=== PATIENT | female | born 1970 | race Caucasian/White ===

== ENCOUNTER → 2024-02-11 | Day surgery (SDC) | payer OTHER ==
[2024-02-10 10:46] LABS: BASOPHILS # (AUTO) 0.1 (0.0-0.1); EOSINOPHILS # (AUTO) 0.1 (0.0-0.4); EOSINOPHILS % 1.9 % (0.0-6.0); HEMATOCRIT 45.3 % (34.2-44.1); HEMOGLOBIN 14.6 g/dL (12.0-16.0); LYMPHOCYTES # (AUTO) 1.8 (1.0-3.2); LYMPHOCYTES % 36.6 % (18.0-39.1); MEAN CORPUSCULAR HEMOGLOBIN 30.9 pg (28-32); MEAN CORPUSCULAR HGB CONC 32.2 g/dL (31-35); MEAN CORPUSCULAR VOLUME 95.8 fL (81-99); MONOCYTES # (AUTO) 0.3 (0.2-0.8); MONOCYTES % 5.9 % (4.4-11.3); NEUTROPHILS # (AUTO) 2.6 (2.1-6.9); NEUTROPHILS % 54.2 % (38.7-80.0); PLATELET COUNT 261 x10e3/uL (140-360); RED BLOOD COUNT 4.73 x10e6/uL (3.6-5.1); RED CELL DISTRIBUTION WIDTH 12.8 % (11.7-14.4); WHITE BLOOD COUNT 4.78 x10e3/uL (4.8-10.8)
[2024-02-10 11:06] LABS: ANION GAP 11.1 mmol/L (8-16); CALCIUM 8.6 mg/dL (8.4-10.2); CREATININE, SERUM 0.85 mg/dL (0.57-1.11); POTASSIUM 4.1 mmol/L (3.5-5.1); URIC ACID 4.9 mg/dL (2.6-8.0)
[~2024-02-11] MED LIST: AJOVY AUTO225 MG/1.5; BACLOFEN10 MG PO; BUSPIRONE HCL5 MG PO; CRESTOR40 MG PO; FENTANYL CITRATE/PF 100MCG/2 ML INJ ONE; FLUTICASONE PRO16 GM; HYDROCODON-ACE1 EA11 PO; IOPAMIDOL 610MG/1ML 300 MG/ML VIAL IV ONE; LEVOCETIRIZINE D5 MG; LEXAPRO20 MG PO; LIDOCAINE HCL 2% LOCAL INJ 5 ML SDV VIAL INJ ONE; LOSARTAN POTASS25 MG PO; MAGNESIUM OXID400 MG PO; MIDAZOLAM HCL 2 MG/2 ML VIAL ONE; OMEPRAZOLE40 MG PO; ONDANSETRON HCL INJ 2MG/ML 2ML 2 MG/ML VIAL ONE; POTASSIUM CITR10 MEQ PO; PROPOFOL IV EMULSION 10 MG/ML 20 ML VIAL ONE; TOPAMAX100 MG PO; VERAPAMIL ER120 MG PO; VITAMIN D3
[2024-02-11 10:15] LABS: CALCIUM 8.8 mg/dL (8.7-10.2)
[2024-02-11] MEDS: CEFTRIAXONE 1 GM VIAL ONE (11:45)
[2024-02-11] MEDS: LACTATED RINGER'S 1,000 ML ONE (11:46)
[2024-02-11] MEDS: PHENAZOPYRIDINE HCL 100 MG TAB ONE (15:20)
[2024-02-11 16:00] VITALS: BP 140/72; PULSE 64; RESP 16; O2SAT 99
== END | disposition home or self-care (01) ==
LOC: OR 06:02
PROVIDERS: ATTEND Urology
DX: N20.0 Calculus of kidney (principal); N39.0 Urinary tract infection, site not specified; N32.89 Other specified disorders of bladder; I12.9 Hypertensive chronic kidney disease with stage 1 through stage 4 chronic kidney disease, or unspecified chronic kidney disease; N18.2 Chronic kidney disease, stage 2 (mild); N81.10 Cystocele, unspecified; N81.6 Rectocele; N36.41 Hypermobility of urethra; N95.2 Postmenopausal atrophic vaginitis; N39.46 Mixed incontinence; N32.81 Overactive bladder; N81.89 Other female genital prolapse; N28.1 Cyst of kidney, acquired; E66.9 Obesity, unspecified; J45.909 Unspecified asthma, uncomplicated; E78.5 Hyperlipidemia, unspecified; K58.9 Irritable bowel syndrome, unspecified; M54.2 Cervicalgia; F41.9 Anxiety disorder, unspecified; Z91.041 Radiographic dye allergy status; Z91.040 Latex allergy status; Z91.013 Allergy to seafood; Z01.810 Encounter for preprocedural cardiovascular examination; Z01.812 Encounter for preprocedural laboratory examination; Z01.818 Encounter for other preprocedural examination; Z79.899 Other long term (current) drug therapy; Z68.33 Body mass index [BMI] 33.0-33.9, adult
CPT/HCPCS: 36415; 50590; 74018; 80048; 83970; 84550; 85025; 87086; 93005; C1758; J0696; J2001; J2250; J2405; J2704; J3010; J7121; Q9967

== ENCOUNTER 2024-02-12 09:54 | Emergency (ER) | payer OTHER ==
[~2024-02-12] VITALS: Ht 167.6 cm; Wt 94.8 kg
[~2024-02-12 09:54] MED LIST changes: -FENTANYL CITRATE/PF 100MCG/2 ML INJ ONE; -HYDROCODON-ACE1 EA11 PO; -IOPAMIDOL 610MG/1ML 300 MG/ML VIAL IV ONE; -LIDOCAINE HCL 2% LOCAL INJ 5 ML SDV VIAL INJ ONE; -MIDAZOLAM HCL 2 MG/2 ML VIAL ONE; -ONDANSETRON HCL INJ 2MG/ML 2ML 2 MG/ML VIAL ONE; -PROPOFOL IV EMULSION 10 MG/ML 20 ML VIAL ONE
[2024-02-12 10:40] VITALS: PULSE 78; RESP 15; TEMP 98.6; O2SAT 98
[2024-02-12 11:37] LABS: BILIRUBIN,URINE SMALL (NEGATIVE); CLARITY,URINE CLEAR (CLEAR); COLOR,URINE ORANGE (YELLOW); GLUCOSE, URINE 1+ (NEGATIVE); KETONES,URINE NEGATIVE (NEGATIVE); LEUKOCYTE ESTERASE ,URINE NEGATIVE (NEGATIVE); NITRITE,URINE POSITIVE (NEGATIVE); PH,URINE 5.5 (5 - 7); PROTEIN,URINE DIPSTICK 2+ (NEGATIVE); URINE UROBILINOGEN 1 mg/dL (0.2 - 1)
[2024-02-12 11:48] LABS: BACTERIA,URINE FEW /HPF; EPITHELIAL CELLS,URINE MODERATE /LPF; MUCUS,URINE FEW (RARE); RBC,URINE 21-50 /HPF (0-5)
[2024-02-12] MEDS ORDERED: HYDROCODON-ACE1 EA11 PO (12:37)
== END 2024-02-12 13:11 | disposition home or self-care (01) ==
LOC: ER 10:00
DX: G89.18 Other acute postprocedural pain (principal); N99.840 Postprocedural hematoma of a genitourinary system organ or structure following a genitourinary system procedure
CPT/HCPCS: 74176; 81001; 87086; 99284

== ENCOUNTER 2024-05-15 10:16 | Inpatient (IN) | payer OTHER ==
[2024-05-10 15:26] LABS: BASOPHILS # (AUTO) 0.1 (0.0-0.1); BASOPHILS % 0.8 % (0.0-1.0); EOSINOPHILS # (AUTO) 0.1 (0.0-0.4); HEMATOCRIT 43.7 % (34.2-44.1); LYMPHOCYTES # (AUTO) 2.9 (1.0-3.2); LYMPHOCYTES % 43.5 % (18.0-39.1); MEAN CORPUSCULAR HEMOGLOBIN 30.8 pg (28-32); MEAN CORPUSCULAR VOLUME 96.3 fL (81-99); MONOCYTES # (AUTO) 0.4 (0.2-0.8); MONOCYTES % 6.6 % (4.4-11.3); NEUTROPHILS # (AUTO) 3.1 (2.1-6.9); NEUTROPHILS % 47.1 % (38.7-80.0); PLATELET COUNT 257 x10e3/uL (140-360); RED BLOOD COUNT 4.54 x10e6/uL (3.6-5.1); RED CELL DISTRIBUTION WIDTH 13.5 % (11.7-14.4); WHITE BLOOD COUNT 6.66 x10e3/uL (4.8-10.8)
[2024-05-10 15:45] LABS: ANION GAP 11.5 mmol/L (8-16); CALCIUM 9.5 mg/dL (8.4-10.2); CREATININE, SERUM 1.16 mg/dL (0.57-1.11); POTASSIUM 3.5 mmol/L (3.5-5.1)
[~2024-05-15] VITALS: Ht 167.6 cm; Wt 92.1 kg
[2024-05-15] VITALS (7 sets, daily range): BP systolic 131–144; BP diastolic 62–74; PULSE 85–95; RESP 16–20; TEMP 97–97.8; O2SAT 96–99
[~2024-05-15 10:16] MED LIST changes: +Ampicillin/Sulbactam 3 GM Vial ONE; +BUTALB-ACETAMI1 EACH PO; +HYDROCODON-ACE1 EA11 PO; +SODIUM CHLORIDE 0.9% INJ 100 ML BAG ONE; +TOPIRAMATE ER100 M1 PO
[2024-05-15] MEDS: LACTATED RINGER'S 1,000 ML ONE (12:09)
[2024-05-15] MEDS: GENTAMICIN 80MG/NS 100 ML 200 ML IV ONE (12:10)
[2024-05-15] MEDS: CLINDAMYCIN 600MG / 50ML 50 ML IV ONE (12:10)
[2024-05-15] MEDS ORDERED: PROPOFOL IV EMULSION 10 MG/ML 20 ML VIAL ONE (12:22)
[2024-05-15] MEDS ORDERED: LIDOCAINE HCL 2% LOCAL INJ 5 ML SDV VIAL INJ ONE (12:22)
[2024-05-15] MEDS ORDERED: ROCURONIUM BROMIDE 1 ML IV ONE (12:22)
[2024-05-15] MEDS ORDERED: FENTANYL CITRATE/PF 100MCG/2 ML INJ ONE (12:22)
[2024-05-15] MEDS ORDERED: DEXAMETHASONE SOD PHOS INJ 4 MG/ML SDV ONE ×2 (13:06→13:07)
[2024-05-15] MEDS ORDERED: ONDANSETRON HCL INJ 2MG/ML 2ML 2 MG/ML VIAL ONE (13:06)
[2024-05-15] MEDS ORDERED: ACETAMINOPHEN 1000 MG/100 ML 100 ML IV ONE (13:14)
[2024-05-15] MEDS ORDERED: EPHEDRINE SULFATE INJ 50 MG/ML VIAL ONE (13:33)
[2024-05-15] MEDS ORDERED: SUGAMMADEX SODIUM 200 MG/2 ML VIAL IV ONE (14:12)
[2024-05-15] MEDS: MEPERIDINE HCL INJ 25 MG/ML VIAL ONE (14:43)
[2024-05-15] MEDS ORDERED: PHENAZOPYRIDINE HCL 100 MG TAB PO PRN (14:45)
[2024-05-15] MEDS ORDERED: ACETAMINOPHEN 1000 MG/100 ML IV PRN (14:45)
[2024-05-15] MEDS: SODIUM CHLORIDE 0.9% 1000ML 1,000 ML IV SCH (14:45)
[2024-05-15] MEDS ORDERED: DIPHENHYDRAMINE HCL 25 MG CAP PO PRN (14:45)
[2024-05-15] MEDS ORDERED: ACETAMINOPHEN/CODEINE 300MG - 30MG TAB PO PRN (14:45)
[2024-05-15] MEDS ORDERED: NALOXONE HCL INJ 0.4 MG/ML AMP IV PRN (14:45)
[2024-05-15] MEDS: MORPHINE SULFATE 1 MG/ML 30ML PCA IV PRN (15:25)
[2024-05-15 15:37] LABS: BASOPHILS # (AUTO) 0.1 (0.0-0.1); BASOPHILS % 0.8 % (0.0-1.0); EOSINOPHILS # (AUTO) 0.1 (0.0-0.4); EOSINOPHILS % 1.2 % (0.0-6.0); HEMOGLOBIN 13.5 g/dL (12.0-16.0); LYMPHOCYTES # (AUTO) 2.8 (1.0-3.2); LYMPHOCYTES % 36.2 % (18.0-39.1); MEAN CORPUSCULAR HGB CONC 31.4 g/dL (31-35); MEAN CORPUSCULAR VOLUME 98.6 fL (81-99); MONOCYTES # (AUTO) 0.2 (0.2-0.8); NEUTROPHILS # (AUTO) 4.6 (2.1-6.9); NEUTROPHILS % 58.7 % (38.7-80.0); PLATELET COUNT 266 x10e3/uL (140-360); RED BLOOD COUNT 4.36 x10e6/uL (3.6-5.1); RED CELL DISTRIBUTION WIDTH 13.4 % (11.7-14.4); WHITE BLOOD COUNT 7.78 x10e3/uL (4.8-10.8)
[2024-05-15 15:53] LABS: ANION GAP 15.8 mmol/L (8-16); CALCIUM 8.9 mg/dL (8.4-10.2); CREATININE, SERUM 1.16 mg/dL (0.57-1.11); POTASSIUM 3.8 mmol/L (3.5-5.1)
[2024-05-16] VITALS (10 sets, daily range): BP systolic 123–131; BP diastolic 62–73; PULSE 69–93; RESP 17–20; TEMP 98–98.5; O2SAT 95–98
[2024-05-16 05:55] LABS: BASOPHILS % 0.1 % (0.0-1.0); HEMATOCRIT 37.7 % (34.2-44.1); HEMOGLOBIN 12.6 g/dL (12.0-16.0); LYMPHOCYTES # (AUTO) 0.7 (1.0-3.2); LYMPHOCYTES % 5.5 % (18.0-39.1); MEAN CORPUSCULAR HEMOGLOBIN 31.3 pg (28-32); MEAN CORPUSCULAR HGB CONC 33.4 g/dL (31-35); MEAN CORPUSCULAR VOLUME 93.8 fL (81-99); MONOCYTES # (AUTO) 0.5 (0.2-0.8); MONOCYTES % 3.4 % (4.4-11.3); NEUTROPHILS # (AUTO) 11.9 (2.1-6.9); NEUTROPHILS % 90.5 % (38.7-80.0); PLATELET COUNT 244 x10e3/uL (140-360); RED BLOOD COUNT 4.02 x10e6/uL (3.6-5.1); RED CELL DISTRIBUTION WIDTH 13.6 % (11.7-14.4); WHITE BLOOD COUNT 13.16 x10e3/uL (4.8-10.8)
[2024-05-16 06:20] LABS: ANION GAP 12.1 mmol/L (8-16); CALCIUM 8.6 mg/dL (8.4-10.2); CREATININE, SERUM 0.92 mg/dL (0.57-1.11); POTASSIUM 4.1 mmol/L (3.5-5.1)
[2024-05-16] MEDS ORDERED: FENTANYL CITRATE/PF 100MCG/2 ML INJ ONE (07:19)
[2024-05-16] MEDS ORDERED: ACETAMIN/BUTALBITAL/CAFFEINE TAB PO PRN (08:45)
[2024-05-16] MEDS ORDERED: ACETAMINOPHEN 325 MG TAB PO PRN (08:45)
[2024-05-16] MEDS: BUSPIRONE HCL 5 MG TAB PO SCH (10:07)
[2024-05-16] MEDS: MAGNESIUM OXIDE 400 MG TAB PO SCH (10:07)
[2024-05-16] MEDS: PANTOPRAZOLE SODIUM 20 MG TABLET.DR PO SCH (10:08)
[2024-05-16] MEDS: LOSARTAN POTASSIUM 25 MG TAB PO SCH (10:10)
[2024-05-16] MEDS: VERAPAMIL HCL 120 MG TABSR PO SCH (10:10)
[2024-05-16] MEDS: ESCITALOPRAM OXALATE 10 MG TAB PO SCH (10:10)
[2024-05-16] MEDS: BACLOFEN 10 MG TAB PO SCH (21:43)
[2024-05-17] VITALS (9 sets, daily range): BP systolic 118–136; BP diastolic 53–71; PULSE 74–90; RESP 17–19; TEMP 98.2–98.8; O2SAT 94–98
[2024-05-17 05:51] LABS: BASOPHILS # (AUTO) 0.1 (0.0-0.1); BASOPHILS % 0.5 % (0.0-1.0); EOSINOPHILS # (AUTO) 0.1 (0.0-0.4); EOSINOPHILS % 0.9 % (0.0-6.0); HEMOGLOBIN 11.6 g/dL (12.0-16.0); LYMPHOCYTES # (AUTO) 3.4 (1.0-3.2); LYMPHOCYTES % 26.5 % (18.0-39.1); MEAN CORPUSCULAR HEMOGLOBIN 31.4 pg (28-32); MEAN CORPUSCULAR HGB CONC 32.2 g/dL (31-35); MEAN CORPUSCULAR VOLUME 97.3 fL (81-99); MONOCYTES # (AUTO) 0.9 (0.2-0.8); MONOCYTES % 6.7 % (4.4-11.3); NEUTROPHILS # (AUTO) 8.4 (2.1-6.9); NEUTROPHILS % 64.9 % (38.7-80.0); PLATELET COUNT 242 x10e3/uL (140-360); RED CELL DISTRIBUTION WIDTH 14.5 % (11.7-14.4); WHITE BLOOD COUNT 12.92 x10e3/uL (4.8-10.8)
[2024-05-17 06:29] LABS: ANION GAP 11.8 mmol/L (8-16); CALCIUM 8.5 mg/dL (8.4-10.2); CREATININE, SERUM 1.07 mg/dL (0.57-1.11); POTASSIUM 3.8 mmol/L (3.5-5.1)
[2024-05-17] MEDS ORDERED: HYDROCODONE/APAP 10MG-325MG TAB PO PRN (08:15)
[2024-05-17] MEDS: TOPIRAMATE 100 MG PO SCH (09:00)
[2024-05-17] MEDS: ONDANSETRON HCL INJ 2MG/ML 2ML 2 MG/ML VIAL IV PRN (21:39)
[2024-05-17] MEDS: Morphine 4mg INJECTION 4 MG/ML INJ IV PRN (21:39)
[2024-05-18] VITALS: BP 127/61; PULSE 79; RESP 18; TEMP 98.4; O2SAT 97
[2024-05-18 04:00] VITALS: BP 131/64; PULSE 80; RESP 18; TEMP 98.2; O2SAT 94
[2024-05-18 06:06] LABS: BASOPHILS # (AUTO) 0.1 (0.0-0.1); BASOPHILS % 0.7 % (0.0-1.0); EOSINOPHILS # (AUTO) 0.3 (0.0-0.4); EOSINOPHILS % 2.4 % (0.0-6.0); HEMOGLOBIN 12.9 g/dL (12.0-16.0); LYMPHOCYTES # (AUTO) 3.9 (1.0-3.2); MEAN CORPUSCULAR HEMOGLOBIN 31.3 pg (28-32); MEAN CORPUSCULAR HGB CONC 30.7 g/dL (31-35); MEAN CORPUSCULAR VOLUME 101.9 fL (81-99); MONOCYTES # (AUTO) 0.7 (0.2-0.8); MONOCYTES % 6.1 % (4.4-11.3); NEUTROPHILS % 54.4 % (38.7-80.0); PLATELET COUNT 260 x10e3/uL (140-360); RED BLOOD COUNT 4.12 x10e6/uL (3.6-5.1); RED CELL DISTRIBUTION WIDTH 14.3 % (11.7-14.4); WHITE BLOOD COUNT 10.94 x10e3/uL (4.8-10.8)
[2024-05-18 06:28] LABS: ANION GAP 15.3 mmol/L (8-16); CALCIUM 9.1 mg/dL (8.4-10.2); CREATININE, SERUM 1.1 mg/dL (0.57-1.11)
[2024-05-18 06:36] VITALS: PULSE 80; RESP 20; O2SAT 97
[2024-05-18 06:39] LABS: POTASSIUM 3.3 mmol/L (3.5-5.1)
[2024-05-18 08:00] VITALS: BP 136/80; PULSE 84; RESP 18; TEMP 98; O2SAT 96
[2024-05-18 08:57] VITALS: BP 136/80
== END 2024-05-18 11:05 | disposition home or self-care (01) | DRG 748 ==
LOC: OR 10:16 → PACU V 14:43 → MED/SURG2 15:43
PROVIDERS: ADMIT Urology; ATTEND Internal Medicine
PROC: 0TSD0ZZ Reposition Urethra, Open Approach (ICD-10-PCS; 2024-05-15)
PROC: 0TUD0KZ Supplement Urethra with Nonautologous Tissue Substitute, Open Approach (ICD-10-PCS; 2024-05-15)
PROC: 0TCB8ZZ Extirpation of Matter from Bladder, Via Natural or Artificial Opening Endoscopic (ICD-10-PCS; 2024-05-15)
PROC: BT141ZZ Fluoroscopy of Kidneys, Ureters and Bladder using Low Osmolar Contrast (ICD-10-PCS; 2024-05-15)
PROC: 0JUC0KZ Supplement of Pelvic Region Subcutaneous Tissue and Fascia with Nonautologous Tissue Substitute, Open Approach (ICD-10-PCS; principal; 2024-05-15 12:46)
DX: N81.10 Cystocele, unspecified (principal); N39.3 Stress incontinence (female) (male); N81.6 Rectocele; R33.9 Retention of urine, unspecified; N21.0 Calculus in bladder; N32.81 Overactive bladder; I12.9 Hypertensive chronic kidney disease with stage 1 through stage 4 chronic kidney disease, or unspecified chronic kidney disease; E11.22 Type 2 diabetes mellitus with diabetic chronic kidney disease; N18.2 Chronic kidney disease, stage 2 (mild); E78.5 Hyperlipidemia, unspecified; E88.810 Metabolic syndrome; E66.01 Morbid (severe) obesity due to excess calories; Z68.32 Body mass index [BMI] 32.0-32.9, adult; J45.909 Unspecified asthma, uncomplicated; G89.29 Other chronic pain; M54.2 Cervicalgia; F41.9 Anxiety disorder, unspecified; M19.91 Primary osteoarthritis, unspecified site; Z91.040 Latex allergy status; Z91.013 Allergy to seafood; Z91.048 Other nonmedicinal substance allergy status; Z79.899 Other long term (current) drug therapy; Z87.442 Personal history of urinary calculi
CPT/HCPCS: 36415; 74420; 80048; 83036; 83735; 84443; 85025; 94799; C1758; C1762; J0295; J1100; J1580; J2003; J2175; J2270; J2405; J7030; J7050